=== PATIENT | male | born 1950 ===

== ENCOUNTER → 2024-05-24 | Outpatient (CLI) | payer MEDICARE, OTHER | LOC: LAB SHORT 15:30 → LAB 15:30 → LAB SHORT 05-25 18:01 | DX: L08.9 Local infection of the skin and subcutaneous tissue, unspecified (principal); D48.5 Neoplasm of uncertain behavior of skin; L53.8 Other specified erythematous conditions; Z09 Encounter for follow-up examination after completed treatment for conditions other than malignant neoplasm; Z86.14 Personal history of Methicillin resistant Staphylococcus aureus infection | CPT/HCPCS: 87070; 87205 ==